=== PATIENT | female | born 1975 ===

== ENCOUNTER 2019-01-15 09:07 | Outpatient (CLI) | payer OTHER | END 2019-01-15 09:09 | disposition home or self-care (01) | LOC: MAMO-SONO 09:07 | DX: Z12.31 Encounter for screening mammogram for malignant neoplasm of breast (principal); Z80.3 Family history of malignant neoplasm of breast ==

== ENCOUNTER → 2019-02-12 | Outpatient (CLI) | payer OTHER | END | disposition home or self-care (01) | LOC: NUCLEAR 08:41 | DX: E04.1 Nontoxic single thyroid nodule (principal) | CPT/HCPCS: 78013; A9512 ==

== ENCOUNTER 2019-04-11 08:49 | Outpatient (CLI) | payer OTHER | END 2019-04-11 09:07 | disposition home or self-care (01) | LOC: TOM 08:49 | DX: E04.1 Nontoxic single thyroid nodule (principal); E03.8 Other specified hypothyroidism; R13.19 Other dysphagia ==